=== PATIENT | male | born 1955 | race Two or more races ===

== ENCOUNTER → 2018-05-05 | Outpatient (CLI) | payer OTHER ==
--- NOTE | 2018-05-05 18:46 | CONS ---
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 He has no acute injury. At this time conservative treatment will be initiated. Secondary to taking Xarelto the patient will not be started on an NSAID regiment. Physical therapy will be started for rotator cuff tendinitis and degenerative tear. If the physical therapy is too painful he should return to clinic for subacromial steroid injection. And then continue therapy. If he fails to improve an MRI of the right shoulder will be ordered. Consultation Date/Type/Reason Admit Date/Time Date of Consultation: May 05, 2018 Reason for Consultation Right shoulder pain Date/Time of Note DATE: 05/05/18 TIME: 18:37 Hx of Present Illness Travis Ramsay is a 62 yo RHD with a chief complaint of right shoulder pain. The pain began approximately 3 months ago however he has had some pain there for years. The patients pain is in the lateral aspect of the right shoulder. Pain is radiating to and not past the elbow. The pain is rated as a 89/10. Patient denies complaints of numbness or tingling. The pain is exacerbated by overhead activities and reaching. There is pain at night when lying on the shoulder. The patient does complain of weakness. The patient does complain of loss of ROM. Pain is not relieved by NSAID's. Patient has been taking ibuprofen on a p.r.n. basis as well as using ice. Of note the patient is on Xarelto for arrhythmia. Duration: Years, but worse in the last 3 months Injury: No. 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 Physical Therapy: No Injections: No NSAID's: Ibuprofen as needed Prior surgery: No Neck pain: No Patient denies fever, chills, shortness of breath, chest pain, nausea/vomiting, constipation, diarrhea, numbness, and tingling. Past Medical History Cardiac arrhythmia Past Surgical History Bilateral total hip arthroplasties appendectomy Hernia repair Family History Significant Family History: no pertinent family hx Social History Alcohol Use: none Smoking Status: Never smoker Drug Use: none Exam/Review of Systems Exam Vitals Weight: 160 Height: 5 feet 7 inches Heart Rate: 72 Blood Pressure: 117/79 Exam General Examination: General Appearance Awake, alert, in no acute distress, pleasant and cooperative. Heart regular rhythm. Lungs breathing comfortably, no tachypnea or dyspnea. MUSCULOSKELETAL: Right shoulder Skin is intact. There is atrophy in the infraspinatus fossa. Hoang sign. TTP Lateral shoulder ----- Active ROM: FE: 130 Abd: 90 ER: 70 IR: L5 + lift off or belly press ----- Passive ROM: FE: 130 Abd: 120 ER: 70 IR: L5 ----- Muscle Strength Supraspinatus: 4-/5 Subscapularis: 4/5 Infraspinatus: 4+/5 Teres Minor: 4+/5 ----- + Impingement + Edison's Test Neg Drop Sign ----- Negative Spurling Test ----- Sensation intact to light touch in a median, ulnar, radial, distribution. Sensation slightly decreased to axillary nerve distribution. Mo tor is intact in a median, ulnar, radial, anterior interosseous, and posterior interosseous nerve distribution. Radial and ulnar artery are +2. Wrist extension and flexion are intact. Compartments are soft Imaging Imaging The patient received a standard set of films of the affected shoulder including an AP, Grashey, Scapular Y and Axillary views. Films personally reviewed by myself: The glenohumeral joint is reduced. No significant osteoarthritis of the GHJ. No significant osteoarthritis of the AC joint. There is subchondral cysts at the location of the rotator cuff insertions. The humeral head is not high riding. There is no acetabularization of the acromion or femoralization of the humerus. There is no fracture. DALLAS MUKHERJEE MD May 05, 2018 18:46
--- NOTE | 2018-05-08 11:04 | RADRPT ---
PROCEDURE: XR Right Shoulder CLINICAL INDICATION: Pain TECHNIQUE: 5 views were submitted. COMPARISON: None FINDINGS: Osseous structures: The osseous elements appear intact with no fracture or osseous destruction identi fied. Small erosions are seen at the greater tuberosity of the right humeral head. Joint spaces: The glenohumeral joint is anatomically maintained. Mild degenerative changes seen about the right AC joint. Soft tissues: There is a punctate calcification seen lateral to the right humeral head suspicious for calcific tendonitis. IMPRESSION: 1. No fracture or osseous destruction is evident. Small erosions are seen within the greater tuberos ity of the right humeral head. 2. Mild degenerative change seen about the right AC joint. 3. Punctate calcification seen lateral to the right humeral head suspicious for calcific tendonitis. Physician Jerson Date Time Electronically viewed and signed by Valentín Rodriguez Physician on 05/08/2018 11:04 /
== END | disposition home or self-care (01) ==
LOC: HKI 15:05
PROVIDERS: ATTEND Orthopaedic Surgery Adult Reconstructive Orthopaedic Surgery
DX: M25.511 Pain in right shoulder (principal); I49.9 Cardiac arrhythmia, unspecified; Z96.643 Presence of artificial hip joint, bilateral; Z79.01 Long term (current) use of anticoagulants
CPT/HCPCS: 73030; G0463